=== PATIENT | male | born 1960 ===

== ENCOUNTER 2017-02-07 20:55 | Observation (INO) | payer MEDICARE, OTHER ==
[2017-02-07 20:55] VITALS: BMI 30.7
[2017-02-07 21:20] VITALS: BP 182/89; RESP 16; TEMP 98; O2SAT 98
--- NOTE | 2017-02-07 21:50 | ED PDOC ---
HPI: Male Pain Time Seen by Provider: 02/07/17 21:26 Chief Complaint (Nursing): Male Genitourinary Chief Complaint (Provider): Penile pain History Per: Patient Additional Complaint(s): HPI: 56M with pmhx of HTN, DMII, Hep C, Renal Fauilure on Dialydid M, W,F presents to ED for with multiple complaints of rash, lack of sleep, weight loss and penile discomfort. Pt in and out of sleep, slurring speech. Pt denies any ETOH or drug abuse. no focal weaknesses identified. Past Medical History Reviewed: Nursing Documentation, Vital Signs Vital Signs: Last Vital Signs Temp 98.0 F 02/07/17 21:16 Pulse 82 02/07/17 21:16 Resp 16 02/07/17 21:16 BP 182/89 H 02/07/17 21:16 Pulse Ox 98 02/07/17 21:16 - Medical History PMH: Diabetes, Hepatitis (C), HTN, Hypercholesterolemia, End Stage Renal Disease , Chronic Kidney Disease - Family History Family History: States: Unknown Family Hx - Immunization History Hx Tetanus Toxoid Vaccination: No Hx Influenza Vaccination: No Hx Pneumococcal Vaccination: No - Home Medications Home Medications: Ambulatory Orders Medication Instructions Recorded Calcitriol [Rocaltrol] 0.5 mcg PO DAILY #30 sgl 09/27/15 Calcium Acetate [Phoslo] 667 mg PO TIDCC #12 tab 09/27/15 Carvedilol [Coreg] 12.5 mg PO Q12H #60 tab 09/27/15 Lisinopril [Zestril] 40 mg PO DAILY #30 tab 09/27/15 Simvastatin 20 mg PO DAILY #30 tablet 09/27/15 Tamsulosin [Flomax] 0.4 mg PO DAILY #30 cap 09/27/15 amLODIPine [Norvasc] 10 mg PO DAILY #30 tab 09/27/15 Sitagliptin Phos/Metformin HCl 1 each PO DAILY 12/05/15 [Janumet 50-1,000 mg Tablet] amLODIPine [Norvasc] 10 mg PO DAILY #30 tab 06/10/16 hydrALAZINE [Apresoline] 25 mg PO QID 06/10/16 Meclizine [Meclizine*] 25 mg PO Q6 PRN #30 tab 06/28/16 - Allergies Allergies/Adverse Reactions: Allergies Allergy/AdvReac Type Severity Reaction Status Date / Time No Known Allergies Allergy Verified 12/18/16 17:12 Review of Systems ROS Statement: Except As Marked, All Systems Reviewed And Found Negative Physical Exam - Reviewed Nursing Documentation Reviewed: Yes Vital Signs Reviewed: Yes - Physical Exam Appears: Positive for: Well, Non-toxic, No Acute Distress Head Exam: Positive for: ATRAUMATIC, NORMAL INSPECTION, NORMOCEPHALIC Skin: Positive for: Normal Color, Warm, DRY Eye Exam: Positive for: EOMI, Normal appearance, PERRL ENT: Positive for: Normal ENT Inspection Neck: Positive for: Normal, Painless ROM Cardiovascular/Chest: Positive for: Regular Rate, Rhythm Respiratory: Positive for: CNT, Normal Breath Sounds Gastrointestinal/Abdominal: Positive for: Normal Exam, Bowel Sounds, Soft Back: Positive for: Normal Inspection Extremity: Positive for: Normal ROM Neurologic/Psych: Positive for: Alert - Laboratory Results Result Diagrams: 02/07/17 22:20 02/07/17 22:20 - ECG O2 Sat by Pulse Oximetry: 98 Medical Decision Making Medical Decision Making: EKG: NSR at 80 bpm, no acute ST changes, as read by TANYA Labs resulted and reviewed with Pt and ED MD who demonstrated full understanding Pt found to be (+) for PCP. On re-eval, pt asleep in NAD Head CT IMPRESSION: 1. Nonspecific white matter changes. Acute infarction may be CT occult within first 24 hours. If a focal deficit persists, consider followup CT or MRI for further evaluation. 2. Incidental/non-acute findings are described above. On second re-eval, Pt awake and more alert. Pt asking to sleep in ED, scheduled to go to Dialysis later this morning. Case discussed with ED MD, Dr. Jay, who agreed Pt stable for discharge at this time. Disposition - Clinical Impression Clinical Impression: PCP (phencyclidine) abuse - Patient ED Disposition Is Patient to be Admitted: No - Disposition Disposition: Routine/Home Disposition Time: 06:00 Condition: STABLE
[2017-02-07] MEDS ORDERED: cefTRIAXone (Rocephin) 250 mg Inj IM ONE (22:00)
[2017-02-07] MEDS ORDERED: cefTRIAXone (Rocephin) 250 mg Inj ONE (22:24)
[2017-02-07] MEDS ORDERED: Sterile Water 10 ML IV ONE (22:25)
[2017-02-07 22:28] LABS: BASO % 0.5 % (0.0-2.0); EOS # 0.3 K/uL (0.0-0.7); EOS % 4.3 % (0.0-4.0); HEMOGLOBIN 8.9 g/dL (12.0-18.0); LYMPH # 1.5 K/uL (1.0-4.3); LYMPH % 23.8 % (20.0-40.0); MEAN CELL VOLUME 91.4 fl (80.0-94.0); MEAN CORPUSCULAR HEMOGLOBIN 32.3 pg (27.0-31.0); MEAN CORPUSCULAR HGB CONC 35.4 g/dL (33.0-37.0); MEAN PLATELET VOLUME 8.4 fl (7.2-11.7); MONO # 0.6 K/uL (0.0-0.8); MONO % 9.6 % (0.0-10.0); NEUT # 3.9 K/uL (1.8-7.0); NEUT % 61.8 % (50.0-75.0); NRBC % 0.4 % (0.0-0.0); RBC 2.75 Mil/uL (4.40-5.90); RED CELL DISTRIBUTION WIDTH 15.1 % (11.5-14.5); WHITE BLOOD COUNT 6.3 K/uL (4.8-10.8)
[2017-02-07 22:37] LABS: ALB/GLOB RATIO 1.6 (1.0-2.1); ALBUMIN 4.5 g/dL (3.5-5.0); ALT/SGPT 35 U/L (21-72); AST/SGOT 27 U/L (17-59); BLOOD UREA NITROGEN 48 mg/dl (9-20); CALCIUM 9.3 mg/dL (8.4-10.2); GFR AFRICAN-AMERICAN 5; GFR NON-AFRICAN AMERICAN 5
[2017-02-07 23:34] VITALS: PULSE 80
[2017-02-07 23:49] LABS: PARTIAL THROMBOPLASTIN TIME 30.1 Seconds (25.6-37.1)
[2017-02-07 23:53] LABS: VENOUS BLOOD GAS BASE EXCESS -2.2 mmol/L (0.0-2.0); VENOUS BLOOD GAS PCO2 75 mmHg (40-60); VENOUS BLOOD GAS PO2 59 mm/Hg (30-55); VENOUS BLOOD PH 7.18 (7.32-7.43)
--- NOTE | 2017-02-08 00:24 | CT ---
EXAM: CT Head Without Intravenous Contrast CLINICAL HISTORY: 56 years old, male; Signs and symptoms; Altered mental status/memory loss; Additional info: AMS TECHNIQUE: Axial computed tomography images of the head/brain without intravenous contrast. This CT exam was performed using one or more of the following dose reduction techniques: automated exposure control, adjustment of the mA and/or kV according to patient size, and/or use of iterative reconstruction technique. Coronal and sagittal reformatted images were created and reviewed. COMPARISON: CT - HEAD W/O CONTRAST 06/28/2016 6:29:01 PM FINDINGS: Brain: Mild atrophy. No intracranial hemorrhage. No mass. Few scattered foci of decreased attenuation within periventricular/subcortical white matter. No definite edema. Ventricles: No hydrocephalus. Bones/joints: No acute fracture. Soft tissues: Unremarkable. Vasculature: Mild atherosclerotic disease of intracranial arteries. Sinuses: Scattered minimal mucosal thickening. RIGHT maxillary retention cyst. Mastoid air cells: No mastoid effusion. Orbits: Unremarkable as visualized. IMPRESSION: 1. Nonspecific white matter changes. Acute infarction may be CT occult within first 24 hours. If a focal deficit persists, consider followup CT or MRI for further evaluation. 2. Incidental/non-acute findings are described above.
[2017-02-08 02:38] LABS: BARBITURATES, UR NEGATIVE (NEGATIVE); BENZODIAZEPINES, UR NEGATIVE (NEGATIVE); OPIATES, UR NEGATIVE (NEGATIVE); PHENCYCLIDINE, UR POSITIVE (NEGATIVE)
[2017-02-08 02:56] LABS: URINE BILIRUBIN NEGATIVE (NEGATIVE); URINE BLOOD NEGATIVE (NEGATIVE); URINE CLARITY CLEAR (Clear); URINE COLOR YELLOW (YELLOW); URINE GLUCOSE (UA) 150 mg/dL (Normal); URINE LEUKOCYTE ESTERASE TRACE Leu/uL (Negative); URINE NITRATE NEGATIVE (NEGATIVE); URINE PROTEIN >=500 mg/dL (NEGATIVE); URINE UROBILINOGEN 0.2-1.0 mg/dL (0.2-1.0)
--- NOTE | 2017-02-08 08:03 | CARD ---
APPROVED REPORT EKG Measurement Heart [id number] CT 160P67 [id number] <Conclusion> Normal sinus rhythm Possible Left atrial enlargement Left ventricular hypertrophy Nonspecific T wave abnormality Prolonged QT Abnormal ECG
== END 2017-02-08 06:03 | disposition home or self-care (01) ==
LOC: H.ER 20:55 → H.EROBSV 02-08 02:20
PROVIDERS: ADMIT Emergency Medicine; ATTEND Emergency Medicine
DX: F16.10 Hallucinogen abuse, uncomplicated (principal); E11.22 Type 2 diabetes mellitus with diabetic chronic kidney disease; E78.00 Pure hypercholesterolemia, unspecified; I12.0 Hypertensive chronic kidney disease with stage 5 chronic kidney disease or end stage renal disease; N18.6 End stage renal disease; Z86.19 Personal history of other infectious and parasitic diseases; R21 Rash and other nonspecific skin eruption; R53.1 Weakness; Z99.2 Dependence on renal dialysis
CPT/HCPCS: 70450; 80053; 81003; 82803; 85025; 85610; 85730; 93005; 96372; 99284; G0378; G0480; J0696

== ENCOUNTER 2017-09-21 20:31 | Emergency (ER) | payer MEDICARE ==
[2017-09-21 20:31] VITALS: BMI 30.7
[2017-09-21 20:48] VITALS: TEMP 98.5; O2SAT 98
[2017-09-21 21:51] LABS: BASO # 0.1 K/uL (0.0-0.2); BASO % 1.3 % (0.0-2.0); EOS # 0.5 K/uL (0.0-0.7); EOS % 7.4 % (0.0-4.0); HEMOGLOBIN 12.7 g/dL (12.0-18.0); LYMPH # 2.2 K/uL (1.0-4.3); LYMPH % 29.2 % (20.0-40.0); MEAN CELL VOLUME 95.1 fl (80.0-94.0); MEAN CORPUSCULAR HEMOGLOBIN 32.4 pg (27.0-31.0); MEAN CORPUSCULAR HGB CONC 34.1 g/dL (33.0-37.0); MEAN PLATELET VOLUME 7.7 fl (7.2-11.7); MONO # 0.6 K/uL (0.0-0.8); MONO % 8.4 % (0.0-10.0); NEUT % 53.7 % (50.0-75.0); RBC 3.91 Mil/uL (4.40-5.90); RED CELL DISTRIBUTION WIDTH 14.4 % (11.5-14.5); WHITE BLOOD COUNT 7.4 K/uL (4.8-10.8)
[2017-09-21 22:36] LABS: BLOOD UREA NITROGEN 57 mg/dl (9-20); CALCIUM 8.1 mg/dL (8.4-10.2); GFR AFRICAN-AMERICAN 7; GFR NON-AFRICAN AMERICAN 6
[2017-09-21 22:49] LABS: ACETAMINOPHEN < 10.0 ug/ml (10.0-30.0); SALICYLATE < 1.0 mg/dl
[2017-09-21 23:26] VITALS: BP 128/78; PULSE 78; RESP 18
--- NOTE | 2017-09-21 23:34 | ED PDOC ---
HPI: Psych/Substance Abuse Time Seen by Provider: 09/21/17 20:51 Chief Complaint (Nursing): Substance Abuse Chief Complaint (Provider): Substance Abuse ED Caveat: Intoxicated History Per: EMS History/Exam Limitations: intoxication Current Symptoms Are (Timing): Still Present Additional Complaint(s): Kei Molina is a 56 year old male with a history of ESRD, hypertension, and drug abuse that was brought to the ED by EMS after a bystander called the police because he seemed intoxicated in the streets. At time of arrival patient has no complaints, but is not oriented. Past Medical History Reviewed: Historical Data, Nursing Documentation, Vital Signs Vital Signs: Last Vital Signs Temp 98.5 F 09/21/17 20:46 Pulse 78 09/21/17 23:24 Resp 18 09/21/17 23:24 BP 128/78 09/21/17 23:24 Pulse Ox 98 09/21/17 23:24 - Medical History PMH: Diabetes, Hepatitis (C), HTN, Hypercholesterolemia, End Stage Renal Disease , Chronic Kidney Disease - Family History Family History: States: Unknown Family Hx - Social History Drugs: Other (Pt has history of drug abuse) - Immunization History Hx Tetanus Toxoid Vaccination: No Hx Influenza Vaccination: No Hx Pneumococcal Vaccination: No - Home Medications Home Medications: Ambulatory Orders Medication Instructions Recorded Calcitriol [Rocaltrol] 0.5 mcg PO DAILY #30 sgl 09/27/15 Calcium Acetate [Phoslo] 667 mg PO TIDCC #12 tab 09/27/15 Carvedilol [Coreg] 12.5 mg PO Q12H #60 tab 09/27/15 Lisinopril [Zestril] 40 mg PO DAILY #30 tab 09/27/15 Simvastatin 20 mg PO DAILY #30 tablet 09/27/15 Tamsulosin [Flomax] 0.4 mg PO DAILY #30 cap 09/27/15 amLODIPine [Norvasc] 10 mg PO DAILY #30 tab 09/27/15 Sitagliptin Phos/Metformin HCl 1 each PO DAILY 12/05/15 [Janumet 50-1,000 mg Tablet] amLODIPine [Norvasc] 10 mg PO DAILY #30 tab 06/10/16 hydrALAZINE [Apresoline] 25 mg PO QID 06/10/16 Meclizine [Meclizine*] 25 mg PO Q6 PRN #30 tab 06/28/16 - Allergies Allergies/Adverse Reactions: Allergies Allergy/AdvReac Type Severity Reaction Status Date / Time No Known Allergies Allergy Verified 12/18/16 17:12 Review of Systems Review Of Systems: ROS cannot be obtained secondary to pt's inabilty to answer questions. Physical Exam - Reviewed Nursing Documentation Reviewed: Yes Vital Signs Reviewed: Yes - Physical Exam Appears: Positive for: Non-toxic, No Acute Distress Head Exam: Positive for: ATRAUMATIC, NORMOCEPHALIC Skin: Positive for: Normal Color, Warm Neck: Positive for: Normal, Supple Cardiovascular/Chest: Positive for: Regular Rate, Rhythm. Negative for: Murmur Respiratory: Positive for: Normal Breath Sounds. Negative for: Wheezing Gastrointestinal/Abdominal: Positive for: Normal Exam, Soft. Negative for: Tenderness Back: Positive for: Normal Inspection. Negative for: L CVA Tenderness, R CVA Tenderness Extremity: Positive for: Normal ROM. Negative for: Deformity, Swelling Neurologic/Psych: Positive for: Alert, Other (GCS15. ). Negative for: Oriented (Patient follows some commands but is not oriented. ) Comments: No signs of trauma - Laboratory Results Result Diagrams: 09/21/17 21:47 09/21/17 21:47 - ECG O2 Sat by Pulse Oximetry: 98 (RA) Pulse Ox Interpretation: Normal Medical Decision Making Medical Decision Making: Impression: Substance Abuse Plan: * EKG * Accucheck * Urinalysis * Urine Drug Screen * Reevaluation 23:15 Patient is awake, alert, and oriented x3, steady gait. Requesting to go home. Patient admits to PCP use. Stable for discharge home. Cr is near patient's baseline. Clinical Impression: PCP Use Scribe Attestation: Documented by Estephania Goodwin, acting as a scribe for Valdez Madrid MD. Provider Scribe Attestation: All medical record entries made by the Scribe were at my direction and personally dictated by me. I have reviewed the chart and agree that the record accurately reflects my personal performance of the history, physical exam, medical decision making, and the department course for this patient. I have also personally directed, reviewed, and agree with the discharge instructions and disposition. Disposition - Clinical Impression Clinical Impression: PCP abuse - Patient ED Disposition Is Patient to be Admitted: No - Disposition Referrals: [facility] [Outside] Disposition Time: 23:15 Condition: STABLE Instructions: Drug Abuse and Drug Addiction (DC) Forms: [facility] (Thai) Print Language: MACEDONIAN
--- NOTE | 2017-09-22 22:13 | CARD ---
APPROVED REPORT EKG Measurement Heart [id number] [place] 160P44 [id number] <Conclusion> Normal sinus rhythm Cannot rule out Anterior infarct, age undetermined Abnormal ECG
== END 2017-09-21 23:25 | disposition home or self-care (01) ==
LOC: H.ER 20:31
DX: F16.10 Hallucinogen abuse, uncomplicated (principal); E78.00 Pure hypercholesterolemia, unspecified; I12.0 Hypertensive chronic kidney disease with stage 5 chronic kidney disease or end stage renal disease; N18.6 End stage renal disease
CPT/HCPCS: 80048; 82948; 85025; 93005; 99282; G0480